=== PATIENT | male | born 2000 | race Caucasian/White ===

== ENCOUNTER 2020-11-08 16:38 | Emergency (ER) | payer OTHER ==
[~2020-11-08 16:38] MED LIST: FLEXERIL 10 MG10 MG PO; MOBIC15 MG PO
[2020-11-08] MEDS ORDERED: NAPROSYN500 MG PO (18:28)
== END 2020-11-08 18:51 | disposition home or self-care (01) ==
LOC: ER1 16:38
DX: S60.222A Contusion of left hand, initial encounter (principal); F17.290 Nicotine dependence, other tobacco product, uncomplicated; Z90.89 Acquired absence of other organs; W22.8XXA Striking against or struck by other objects, initial encounter; Y99.0 Civilian activity done for income or pay
CPT/HCPCS: 73130; 99283